=== PATIENT | female | born 1990 ===

== ENCOUNTER 2019-01-01 15:48 | Emergency (ER) | payer OTHER ==
[2019-01-01 16:08] VITALS: BP 143/89; PULSE 94; RESP 18; TEMP 99.3; O2SAT 96
[2019-01-01] MEDS ORDERED: Tdap Vaccine 0.5 ml Vial (10-64 yrs) IM ONE ×2 (16:34→16:54)
--- NOTE | 2019-01-01 16:39 | ED PDOC ---
HPI: General Adult Time Seen by Provider: 01/01/19 16:29 Chief Complaint (Nursing): Medical Clearance Chief Complaint (Provider): Pertussis Exposure History Per: Patient History/Exam Limitations: no limitations Additional Complaint(s): 28 year old female with no pertinent past medical history presents to the ED for medical clearance status post pertussis exposure. Patient works with [employer] and was exposed to pertussis in ED on 12/18/2018. Patient denies having any symptoms or complaints. TDaP not up to date. PMD: Boja LMP: 09/2017 (irregular secondary to PCOS) Past Medical History Reviewed: Historical Data, Nursing Documentation, Vital Signs Vital Signs: Last Vital Signs Temp 99.3 F 01/01/19 16:05 Pulse 94 H 01/01/19 16:05 Resp 18 01/01/19 16:05 BP 143/89 01/01/19 16:05 Pulse Ox 96 01/01/19 16:05 DELANEY Report Viewed: Yes - Medical History PMH: Malignancy (cervical) Other PMH: PCOS, herniated discs - Surgical History Surgical History: Cholecystectomy - Family History Family History: States: No Known Family Hx - Immunization History Hx Tetanus Toxoid Vaccination: No - Home Medications Home Medications: Ambulatory Orders Medication Instructions Recorded Azithromycin [Z-Tommie] 250 mg PO DAILY #6 tab 01/01/19 - Allergies Allergies/Adverse Reactions: Allergies Allergy/AdvReac Type Severity Reaction Status Date / Time No Known Allergies Allergy Verified 01/01/19 16:08 Review of Systems ROS Statement: Except As Marked, All Systems Reviewed And Found Negative Physical Exam - Reviewed Nursing Documentation Reviewed: Yes Vital Signs Reviewed: Yes - Physical Exam Comments: GENERAL APPEARANCE: Patient is awake, alert, oriented x 3, resting comfortably, in no acute distress. SKIN: Warm, dry; (-) cyanosis NECK: Supple, FROM HEART AND CARDIOVASCULAR: (-) irregularity CHEST AND RESPIRATORY: Lungs clear to auscultation bilaterally (-) rales, (-) rhonchi, (-) wheezes; breath sounds equal. Respirations even and nonlabored, speaking in full sentences. NEURO AND PSYCH: Mental status as above. Gait: steady. Speech: clear. (-) facial asymmetry - ECG O2 Sat by Pulse Oximetry: 96 (RA) Pulse Ox Interpretation: Normal Medical Decision Making Medical Decision Makin:30 Clinical impression: 28 year old female with pertussis exposure and need for TDaP Initial plan: * TDap 0.5 ml IM Given patient is asymptomatic, patient is stable for discharge with Rx for Azithromycin. Vitals stable. Diagnostic results d/w the patient in great detail. Diagnosis of pertussis exposure d/w the patient. Based on history, exam and diagnostic results, plan will be for outpatient follow up with PMD. Patient instructed to follow-up with pmd / referral provided / the clinic in 1- 2 days without fail. Advised to take medication as prescribed. Return to the emergency room at any time for any new or worsening symptoms. Patient states she fully agrees with and understands discharge instructions. States that she agrees with the plan and disposition. Verbalized and repeated discharge instructions and plan. I have given the patient opportunity to ask any additional questions. ScribeAttestation: Documented byJinny Noel, acting as a scribe for Jinny Hoff Provider ScribeAttestation: All medical record entries made by the Scribe were at my direction and personally dictated by me. I have reviewed the chart and agree that the record accurately reflects my personal performance of the history, physical exam, medical decision making, and the department course for this patient. I have also personally directed, reviewed, and agree with the discharge instructions and disposition. Disposition - Clinical Impression Clinical Impression: Pertussis exposure, Need for Tdap vaccination - Patient ED Disposition Is Patient to be Admitted: No Counseled Patient/Family Regarding: Studies Performed, Diagnosis, Need For Followup, Rx Given - Disposition Referrals: primary, doctor [Other] Disposition: Routine/Home Disposition Time: 16:50 Condition: STABLE Additional Instructions: The emergency medical care you received today was directed at your acute symptoms. If you were prescribed any medication, please fill it and take as directed. It may take several days for your symptoms to resolve. Return to the Emergency Department if your symptoms worsen, do not improve, or if you have any other problems. Please contact your doctor in 2 days for re-evaluation and follow up / or call one of the physicians/clinics you have been referred to that are listed on the Patient Visit Information form that is included in your discharge packet. Bring any paperwork you were given at discharge with you along with any medications you are taking to your follow up visit. Our treatment cannot replace ongoing medical care by a primary care provider (PCP) outside of the emergency department. Prescriptions: Azithromycin [Z-Tommie] 250 mg PO DAILY #6 tab Instructions: Pertussis, Adult, Tdap Vaccine Forms: [employer] ([employer]) Print Language: JAMAICAN - POA Present On Arrival: None
== END 2019-01-01 17:10 | disposition home or self-care (01) ==
LOC: H.ER 15:48
DX: Z20.818 Contact with and (suspected) exposure to other bacterial communicable diseases (principal); E28.2 Polycystic ovarian syndrome; Z85.41 Personal history of malignant neoplasm of cervix uteri